=== PATIENT | male | born 1945 | race Caucasian/White ===

== ENCOUNTER 2017-10-16 21:48 | Emergency (ER) | payer MEDICARE, BC ==
--- NOTE | 2017-10-17 00:42 | EDM.PDOC ---
ED HPI GENERAL MEDICAL PROBLEM - General Chief Complaint: Gastrointestinal Problem Stated Complaint: ABDOMINAL PAIN/VOMITING Time Seen by Provider: 10/16/17 22:57 Source of Information: Reports: Patient Abdomen Pain Score (Numeric/FACES): 7 - Related Data Allergies Allergy/AdvReac Type Severity Reaction Status Date / Time fluorouracil [From Carac] Allergy Hives Verified 10/16/17 22:00 Home Meds: Home Meds Aspirin 81 mg PO DAILY 10/16/17 [History] Benazepril [Lotensin] 40 mg PO DAILY 10/16/17 [History] Bismuth Subsalicylate [Pepto-Bismol] 30 ml PO ONCALL PRN 10/16/17 [History] Carvedilol [Coreg] 12.5 mg PO BID 10/16/17 [History] Simethicone [Gas Relief 80] 80 mg PO ONCALL PRN 10/16/17 [History] Superbeta Prostate 600 mg PO DAILY 10/16/17 [History] Past Medical History Cardiovascular History: Reports: Hypertension Respiratory History: Reports: PE Gastrointestinal History: Reports: Hiatal Hernia Oncologic (Cancer) History: Reports: Basal Cell Carcinoma, Squamous Cell Carcinoma Dermatologic History: Reports: Other (See Below) Other Dermatologic History: basal and squamos cell - Past Surgical History HEENT Surgical History: Reports: Tonsillectomy Cardiovascular Surgical History: Reports: Cardiac Ablation GI Surgical History: Reports: Colonoscopy, Hernia Repair/Other Social & Family History - Tobacco Use Smoking Status *Q: Never Smoker - Alcohol Use Days Per Week of Alcohol Use: 3 Number of Drinks Per Day: 2 Total Drinks Per Week: 6 - Recreational Drug Use Recreational Drug Use: No ED ROS GENERAL - Review of Systems Review Of Systems: See Below ED EXAM, GI/ABD - Physical Exam Exam: See Below Course - Vital Signs Last Recorded V/S: Last Vital Signs Temp 36.6 C 10/16/17 21:57 Pulse 90 10/16/17 21:57 Resp 16 10/16/17 21:57 BP 151/87 H 10/16/17 21:57 Pulse Ox 95 10/16/17 21:57 - Orders/Labs/Meds Orders: Active Orders 24 hr Category Date Time Status EKG Documentation Completion [RC] ASDIRECTED Care 10/16/17 22:55 Active CXR [Chest 2V] [CR] Stat Exams 10/16/17 22:55 Taken UA W/MICROSCOPIC [URIN] Stat Lab 10/16/17 23:30 Ordered EKG 12 Lead [EK] Stat Ther 10/16/17 22:55 Ordered Labs: Laboratory Tests 10/16/17 10/16/17 10/16/17 Range/Units 23:05 23:05 23:30 WBC 8.41 (4.23-9.07) K/mm3 RBC 4.85 (4.63-6.08) M/mm3 Hgb 13.2 L (13.7-17.5) gm/L Hct 40.6 (40.1-51.0) % MCV 83.7 (79.0-92.2) fl MCH 27.2 (25.7-32.2) pg MCHC 32.5 (32.2-35.5) g/dl RDW Std Deviation 46.5 H (35.1-43.9) fL Plt Count 209 (163-337) K/mm3 MPV 10.4 (9.4-12.3) fl Neut % (Auto) 86.8 H (34.0-67.9) % Lymph % (Auto) 8.7 L (21.8-53.1) % [place] % (Auto) 3.3 L (5.3-12.2) % Eos % (Auto) 0.6 L (0.8-7.0) Baso % (Auto) 0.1 (0.1-1.2) % Neut # (Auto) 7.30 H (1.78-5.38) K/mm3 Lymph # (Auto) 0.73 L (1.32-3.57) K/mm3 [place] # (Auto) 0.28 L (0.30-0.82) K/mm3 Eos # (Auto) 0.05 (0.04-0.54) K/mm3 Baso # (Auto) 0.01 (0.01-0.08) K/mm3 Manual Slide Review Abnormal smear Sodium 138 (136-145) mEq/L Potassium 3.7 (3.5-5.1) mEq/L Chloride 104 (98-107) mEq/L Carbon Dioxide 26 (21-32) mEq/L Anion Gap 11.7 (5-15) BUN 23 H (7-18) mg/dL Creatinine 1.2 (0.7-1.3) mg/dL Est Cr Clr Drug Dosing 65.65 mL/min Estimated GFR (MDRD) 60 (>60) mL/min BUN/Creatinine Ratio 19.2 H (14-18) Glucose 174 H (83-115) mg/dL Calcium 8.9 (8.5-10.1) mg/dL Total Bilirubin 1.4 H (0.2-1.0) mg/dL AST 265 H (15-37) U/L ALT 203 H (16-63) U/L Alkaline Phosphatase 131 H (46-116) U/L Troponin I < 0.017 (0.00-0.056) ng/mL Total Protein 7.0 (6.4-8.2) g/dl Albumin 3.6 (3.4-5.0) g/dl Globulin 3.4 gm/dL Albumin/Globulin Ratio 1.1 (1-2) Amylase 42 (20-160) U/L Urine Color Yellow (Yellow) Urine Appearance Clear (Clear) Urine pH 7.0 (5.0-8.0) Ur Specific [place] 1.020 (1.005-1.030) Urine Protein Trace H (Negative) Urine Glucose (UA) Negative (Negative) Urine Ketones Trace H (Negative) Urine Occult Blood Negative (Negative) Urine Nitrite Negative (Negative) Urine Bilirubin Negative (Negative) Urine Urobilinogen 0.2 (0.2-1.0) Ur Leukocyte Esterase Negative (Negative) Urine RBC 0-5 (0-5) /hpf Urine WBC 0-5 (0-5) /hpf Ur Epithelial Cells Not seen (0-5) /hpf Amorphous Sediment Moderate H (NOT SEEN) /hpf Urine Bacteria Few (FEW) /hpf Urine Mucus Moderate H (FEW) /hpf Departure - Departure Time of Disposition: 00:40 Disposition: Home, Self-Care 01 Condition: Good Clinical Impression: Cholelithiasis without obstruction - Discharge Information *PRESCRIPTION DRUG MONITORING PROGRAM REVIEWED*: Not Applicable *COPY OF PRESCRIPTION DRUG MONITORING REPORT IN PATIENT DEN: Not Applicable Instructions: Cholelithiasis Referrals: Omar Sheppard Jr, MD [Primary Care Provider] - Additional Instructions: Followup with provider for ultrasound or further evaluation. Avoid fatty and greasy foods. - My Orders Last 24 Hours: My Active Orders 10/16/17 22:55 EKG Documentation Completion [RC] ASDIRECTED CXR [Chest 2V] [CR] Stat EKG 12 Lead [EK] Stat 10/16/17 23:30 UA W/MICROSCOPIC [URIN] Stat - Assessment/Plan Last 24 Hours: My Active Orders 10/16/17 22:55 EKG Documentation Completion [RC] ASDIRECTED CXR [Chest 2V] [CR] Stat EKG 12 Lead [EK] Stat 10/16/17 23:30 UA W/MICROSCOPIC [URIN] Stat
--- NOTE | 2017-10-17 05:03 | ER ---
REASON FOR EMERGENCY ROOM VISIT: Epigastric discomfort. HISTORY OF PRESENT ILLNESS: This 72-year-old gentleman comes in with a history of severe epigastric discomfort and bloating. He and his were on their way home from [place] today when he experienced lower chest and more importantly upper abdominal tightness with bloating and a sensation that he had an excess amount of gas. His symptoms worsened throughout the drive late this afternoon. He did stop and had a normal bowel movement, but this did not relieve any of his symptoms. Once he got home, he laid down and moved around a lot and was not able to obtain a comfortable position. He did have some nausea and vomiting after he took some simethicone and Pepto-Bismol. He vomited twice, but it did not affect his symptoms, and in some respect, he thought maybe they were worse. He urinated a normal-appearing urine which did not appear dark in color and shortly thereafter, his symptoms resolved. He feels well now. He did not have any fever or chills. He has no history of scleral icterus or darkening of his urine. He has no known history of biliary tract or peptic ulcer disease. PAST MEDICAL HISTORY: His past medical history was reviewed, but to summarize, he has had ablation for atrial fibrillation 10 years ago. Shortly after that, he had a pulmonary embolus which was treated with heparin, but he has had no thromboembolic problems since. He is hypertensive which is supposedly controlled. He had a normal screening colonoscopy 8 years ago and repair of an epigastric hernia. He does have a known history of hiatal hernia, which has not caused him any trouble. He had a ruptured appendectomy 20 years ago. CURRENT MEDICATIONS: Reviewed. See EMR. ALLERGIES: Fluorouracil. REVIEW OF SYSTEMS: Pertinent positives and negatives as listed above. PHYSICAL EXAMINATION: VITAL SIGNS: He is afebrile. See electronic medical records. HEENT: Head is normocephalic. He has a lot of actinic keratoses on his face and his arms. He has no scleral icterus. Oropharynx is normal in appearance. NECK: Supple. No JVD. No bruits. No adenopathy. CHEST: Clear to auscultation with good air exchange bilaterally and no wheezes, rhonchi, or rales. CARDIAC: Regular rate without murmur. There is no rub. ABDOMEN: Nondistended. Normal bowel sounds are present. He has old surgical scars in the epigastrium. He is soft and nontender. There is no tenderness to deep palpation in the right upper quadrant. Son sign is negative. No palpable masses are noted. EXTREMITIES: Normal pulses. No edema. LABORATORY DATA: Laboratory data was reviewed. His CBC was normal. He has a borderline anemia with a hemoglobin of 13.2. His CMP demonstrates that he has a mild elevation of total bilirubin at 1.4 with mild to modest elevation in AST of 265 and an ALT of 203. His alkaline phosphatase is 131. His troponin 1 is normal and an amylase was normal. His urinalysis was unremarkable. There is no urine bilirubin. IMPRESSION: Epigastric discomfort with bloating, nausea, and vomiting, resolved and elevated liver enzymes as described above. I think that the most likely etiology is biliary tract. He probably has symptomatic cholelithiasis. His chest x-ray shows an air-fluid level in the retrocardiac area, but although this may represent a paraesophageal hiatal hernia, I do not feel likely this is actually symptomatic. RECOMMENDATIONS: I told him to avoid fatty foods for now and that he should follow up with his provider who is at [place]. We could go ahead and set up an ultrasound, but he is going to want to have that done by his provider. I do not think it is an emergency at this point, especially without fever, leukocytosis, or tenderness on physical exam. He understands and agrees to this plan. All questions were answered. SATHYA /[id number]
--- NOTE | 2017-10-19 09:14 | CR ---
Chest: Two views of the chest were obtained. Comparison: No prior chest x-ray. Moderately large hiatal hernia seen. Heart size is normal. Upper mediastinum is normal. Parenchymal density is noted within the left midlung on the frontal view. Lungs otherwise are clear. Bony structures show scattered degenerative endplate spurring. Impression: 1. Slight parenchymal density within left midlung possibly due to small area of pneumonia. 2. Other incidental findings. Diagnostic code #3
== END 2017-10-17 00:53 | disposition home or self-care (01) ==
LOC: JD.ED 21:48
DX: K80.20 Calculus of gallbladder without cholecystitis without obstruction (principal); I10 Essential (primary) hypertension; Z79.82 Long term (current) use of aspirin; Z79.899 Other long term (current) drug therapy; Z90.49 Acquired absence of other specified parts of digestive tract; Z88.8 Allergy status to other drugs, medicaments and biological substances
CPT/HCPCS: 36415; 71046; 71046-26; 80053; 81001; 82150; 84484; 85025; 93005; 99283; 99284-25

== ENCOUNTER 2017-10-20 08:00 | Day surgery (SDC) | payer BC, MEDICARE ==
[2017-10-20] MEDS ORDERED: Bupivacaine 0.5%/EPINEPHrine 1:200,000 50 ML MDV ONE ×2 (08:21→09:14)
[2017-10-20] MEDS ORDERED: Lidocaine 1% with EPINEPHrine 1:100,000 20 ML MDV ONE ×2 (08:21→09:14)
[2017-10-20] MEDS ORDERED: Sodium Chloride 0.9% 10 ML Syringe FLUSH PRN (08:33)
[2017-10-20] MEDS ORDERED: Lidocaine 1%/Sod Bicarbonate in NS 8.4% 1 ML Syringe IDERM PRN (08:33)
[2017-10-20] MEDS ORDERED: fentaNYL 250 MCG/5 ML SDV ONE (08:41)
[2017-10-20] MEDS ORDERED: Propofol 200 MG/20 ML SDV ONE ×3 (08:41→10:45)
[2017-10-20] MEDS ORDERED: Lidocaine 1% 6 ML ONE (08:43)
[2017-10-20] MEDS ORDERED: Ondansetron 4 MG/2 ML SDV ONE (08:43)
[2017-10-20] MEDS ORDERED: Rocuronium 50 MG/5 ML Vial ONE (08:44)
[2017-10-20] MEDS ORDERED: ceFAZolin 1 GM Vial ONE ×3 (08:44→09:39)
[2017-10-20] MEDS ORDERED: Lactated Ringers 1,000 ML IV SCH (08:45)
[2017-10-20] MEDS ORDERED: HYDROmorphone 0.5 MG/0.5 ML Syringe ONE (08:45)
[2017-10-20] MEDS ORDERED: Midazolam 1 MG/ML 2 ML SDV ONE (09:16)
[2017-10-20] MEDS ORDERED: Dexamethasone 4 MG/ML SDV ONE (10:03)
[2017-10-20] MEDS ORDERED: hydrALAZINE 20 MG/ML SDV ONE (10:14)
--- NOTE | 2017-10-20 10:23 | PCM.PREANE ---
Preanesthetic Assessment - Procedure Proposed Procedure: Laparoscopic Cholecystectomy - Anesthesia/Transfusion/Family Hx Anesthesia History: Prior Anesthesia Without Reaction Family History of Anesthesia Reaction: No - Review of Systems General: No Symptoms Pulmonary: No Symptoms Cardiovascular: No Symptoms (Cardiac Ablation in 2007. No episodes of arrythmia since. ), Other (Hypertension, Elevated cholesterol.) Gastrointestinal: Other (GERD. Large Hiatal Hernia seen on CXR. ) Neurological: No Symptoms Other: Reports: None - Physical Assessment NPO Status Date: 10/19/17 NPO Status Time: 21:00 O2 Sat by Pulse Oximetry: 96 Respiratory Rate: 16 Vital Signs: Last Vital Signs Temp 37.1 C 10/20/17 08:10 Pulse 71 10/20/17 08:10 Resp 16 10/20/17 08:10 BP 155/110 H 10/20/17 08:10 Pulse Ox 96 10/20/17 08:10 Height: 1.88 m Weight: 127.006 kg ASA Class: 2 Mental Status: Alert & Oriented x3 Airway Class: Mallampati = 1 Dentition: Reports: Normal Dentition Thyro-Mental Finger Breadths: 3 Mouth Opening Finger Breadths: 3 ROM/Head Extension: Full Lungs: Clear to Auscultation, Normal Respiratory Effort Cardiovascular: Regular Rate, Regular Rhythm - Lab Values: Reviewed. - Imaging/EKG Impressions: SR at 80 bpm, Borderline QT prolongation, PVCs noted. - Allergies Allergies/Adverse Reactions: Allergies Allergy/AdvReac Type Severity Reaction Status Date / Time fluorouracil [From Carac] Allergy Hives Verified 10/19/17 14:19 - Anesthesia Plan Pre-Op Medication Ordered: Anxiolytic Beta Rishabh: Carvedilol Med Last Dose Date: 10/20/17 Med Last Dose Time: 07:30 - Acknowledgements Anesthesia Type Planned: General Anesthesia Pt an Appropriate Candidate for the Planned Anesthesia: Yes Alternatives and Risks of Anesthesia Discussed w Pt/Guardian: Yes Pt/Guardian Understands and Agrees with Anesthesia Plan: Yes Additional Comments: Dr. Villeda notified of patients hypertension in PreOp holding. Prasad and Dr. Villeda wanting to proceed with procedure. He did take his coreg this morning. Dr. Villeda also reviewed the chest xray that shows left mid lung pneumonia. Prasad is asymptomatic for pneumonia. Dr. Villeda does not feel this is pneumonia. Proceed with planned procedure. PreAnesthesia Questionnaire Cardiovascular History: Reports: Hypertension Respiratory History: Reports: PE Gastrointestinal History: Reports: Cholelithiasis, Hiatal Hernia Oncologic (Cancer) History: Reports: Basal Cell Carcinoma, Squamous Cell Carcinoma Dermatologic History: Reports: Other (See Below) Other Dermatologic History: basal and squamos cell - Past Surgical History HEENT Surgical History: Reports: Tonsillectomy Cardiovascular Surgical History: Reports: Cardiac Ablation GI Surgical History: Reports: Colonoscopy, Hernia Repair/Other - SUBSTANCE USE Smoking Status *Q: Never Smoker Days Per Week of Alcohol Use: 3 Number of Drinks Per Day: 2 Total Drinks Per Week: 6 Recreational Drug Use History: No - HOME MEDS Home Medications: Home Meds Aspirin 81 mg PO DAILY 10/16/17 [History] Benazepril [Lotensin] 40 mg PO DAILY 10/16/17 [History] Bismuth Subsalicylate [Pepto-Bismol] 30 ml PO ONCALL PRN 10/16/17 [History] Carvedilol [Coreg] 12.5 mg PO BID 10/16/17 [History] Simethicone [Gas Relief 80] 80 mg PO ONCALL PRN 10/16/17 [History] Saw/Vit E/Sod Siobhan/Lyc/Beta/Pyg [Prostate Health Caplet] 1 tab PO DAILY 10/19/17 [History] - CURRENT (IN HOUSE) MEDS Current Meds: Current Medications Lactated Ringer's (Ringers, Lactated) 1,000 mls @ 125 mls/hr IV ASDIRECTED SHERLYN Stop: 10/20/17 23:00 Last Admin: 10/20/17 08:30 Dose: 125 mls/hr Lidocaine/Sodium Bicarbonate (Buffered Lidocaine 1% In Ns 8.4%) 0.25 ml IDERM ONETIME PRN PRN Reason: Prior to IV Start Stop: 10/20/17 18:00 Last Admin: 10/20/17 08:30 Dose: 0.25 ml Sodium Chloride (Saline Flush) 10 ml FLUSH ASDIRECTED PRN PRN Reason: Keep Vein Open Stop: 10/20/17 18:00 Discontinued Medications Bupivacaine HCl/Epinephrine Bitart (Marcaine 0.5%/Epinephrine 1:200,000) Confirm Administered Dose 50 ml .ROUTE .STK-MED ONE Stop: 10/20/17 08:22 Bupivacaine HCl/Epinephrine Bitart (Marcaine 0.5%/Epinephrine 1:200,000) Confirm Administered Dose 50 ml .ROUTE .[facility]-MED ONE Stop: 10/20/17 09:15 Cefazolin Sodium (Ancef) Confirm Administered Dose 1 gm .ROUTE .ST-MED ONE Stop: 10/20/17 08:45 Cefazolin Sodium (Ancef) Confirm Administered Dose 1 gm .ROUTE .ST-MED ONE Stop: 10/20/17 08:45 Cefazolin Sodium (Ancef) Confirm Administered Dose 1 gm .ROUTE .ST-MED ONE Stop: 10/20/17 09:40 Dexamethasone (Dexamethasone) Confirm Administered Dose 8 mg .ROUTE .[facility]-MED ONE Stop: 10/20/17 10:04 Fentanyl (Sublimaze) Confirm Administered Dose 250 mcg .ROUTE .[facility] ONE Stop: 10/20/17 08:42 Hydromorphone HCl (Dilaudid) Confirm Administered Dose 0.5 mg .ROUTE .[facility] ONE Stop: 10/20/17 08:46 Lidocaine HCl (Xylocaine-Mpf 1%) Confirm Administered Dose 6 mls @ as directed .ROUTE .[facility]-MED ONE Stop: 10/20/17 08:44 Lidocaine/Epinephrine (Xylocaine 1% With Epinephrine 1:100,000) Confirm Administered Dose 20 ml .ROUTE .[facility]-MED ONE Stop: 10/20/17 08:22 Lidocaine/Epinephrine (Xylocaine 1% With Epinephrine 1:100,000) Confirm Administered Dose 20 ml .ROUTE .[facility]-MED ONE Stop: 10/20/17 09:15 Midazolam HCl (Versed 1 Mg/Ml) Confirm Administered Dose 2 mg .ROUTE .ST-MED ONE Stop: 10/20/17 09:17 Ondansetron HCl (Zofran) Confirm Administered Dose 4 mg .ROUTE .ST-MED ONE Stop: 10/20/17 08:44 Propofol (Diprivan 20 Ml) Confirm Administered Dose 200 mg .ROUTE .ST-MED ONE Stop: 10/20/17 08:42 Propofol (Diprivan 20 Ml) Confirm Administered Dose 400 mg .ROUTE .ST-MED ONE Stop: 10/20/17 09:16 Rocuronium [place] (Zemuron) Confirm Administered Dose 50 mg .ROUTE .ST-MED ONE Stop: 10/20/17 08:45
[2017-10-20] MEDS ORDERED: Haloperidol Lactate 5 MG/ML SDV IVPUSH PRN (10:29)
[2017-10-20] MEDS ORDERED: diphenhydrAMINE 50 MG/ML SDV IVPUSH PRN (10:29)
[2017-10-20] MEDS ORDERED: Meperidine 50 MG/ML Vial IVPUSH PRN (10:29)
[2017-10-20] MEDS ORDERED: fentaNYL 100 MCG/2 ML SDV IVPUSH PRN (10:29)
[2017-10-20] MEDS ORDERED: HYDROmorphone 0.5 MG/0.5 ML Syringe IVPUSH PRN (10:30)
--- NOTE | 2017-10-20 11:02 | PCM.OPNOTE ---
- General Post-Op/Procedure Note Date of Surgery/Procedure: 10/20/17 Operative Procedure(s): laparoscopic cholecystectomy Findings: thin-walled, distended gallbladder with gallstones; surrounding omental adhesions Pre Op Diagnosis: Symptomatic cholelithiasis Post-Op Diagnosis: Same Anesthesia Technique: General ET Tube Primary Surgeon: Melissa Pritchett Anesthesia Provider: Miriam Watson Pathology: Gallbladder with stones Fluid Replacement, Intraop: 1,600 Output, Urine Amount: 0 EBL in mLs: 10 Drain/Tube Comments:: None Complications: None apparent Condition: Good
--- NOTE | 2017-10-20 11:13 | PCM.POSTAN ---
POST ANESTHESIA ASSESSMENT - MENTAL STATUS Mental Status: Alert, Oriented - VITAL SIGNS Pulse Rate: 62 SaO2: 95 Resp Rate: 8 Blood Pressure: 143/87 Temperature: 37.3 C - RESPIRATORY Respiratory Status: Respiratory Rate WNL, Airway Patent, O2 Saturation Stable, Supplemental Oxygen - CARDIOVASCULAR CV Status: Pulse Rate WNL, Blood Pressure Stable - GASTROINTESTINAL GI Status: No Symptoms - PAIN Pain Score: 0 - POST OP HYDRATION Hydration Status: Adequate & Stable
--- NOTE | 2017-10-20 11:19 | PCM.PRNOTE ---
- Free Text/Narrative Note: OPERATIVE REPORT Date of Surgery/Procedure: 10/20/17 Operative Procedure(s): laparoscopic cholecystectomy Findings: thin-walled, distended gallbladder with gallstones; surrounding omental adhesions Pre Op Diagnosis: Symptomatic cholelithiasis Post-Op Diagnosis: Same Anesthesia Technique: General ET Tube Primary Surgeon: Melissa Pritchett MD Anesthesia Provider: Miriam Watson Pathology: Gallbladder with stones Fluid Replacement, Intraop: 1,600cc Output, Urine Amount: 0 EBL in mLs: 10 Drain/Tube Comments:: None Indication for the procedure: The patient is a 72-year-old gentleman who presented to my office with a recent emergency department visit for an episode of biliary colic. He was diagnosed with gallstones but no signs of infection. His labs repeated preoperatively and showed a normal bilirubin level. He was counseled for laparoscopic cholecystectomy, with possible conversion to open. After discussion of the risks of infection, bleeding and injury to the bile duct as well as increased complication from previous intra-abdominal surgery, the patient's consent was obtained. Description of the procedure: The patient presented to the outpatient holding area on the day of his procedure. His history and physical were verified and his consent was present and on the chart. He was taken back to the operating room and placed in supine position on the operating table. SCD boots were placed and functional prior to the start of the procedure. He had administration of preoperative antibiotics according to SCIP protocol, Ancef 3 g IV. A surgical timeout was performed. He then had induction of general anesthesia and was intubated without difficulty. The patient was prepped and draped in standard surgical fashion. We began by making an infraumbilical vertical incision and deepened this down through subcutaneous fat to the level of the fascia. This was grasped and incised. We bluntly entered through the peritoneum and a finger sweep was done. A stay suture of 0 Vicryl was placed in the fascia. The 12 mm balloon Gómez port was then inserted into the abdomen and the balloon inflated. Insufflation was attached and we had appropriate opening pressures. The abdomen was then insufflated to 15 mmHg. We inserted a scope into the abdomen and inspected the area where we had entered. There was no evidence of injury to surrounding structures with no evidence of bile or bleeding. A TAP block was then performed using 1% lidocaine with epinephrine mixed with 0.5% bupivicaine with epinephrine The patient was then positioned with head up and right side up to facilitate exposure of the gallbladder. We then proceeded with placing our additional ports. A 10mm port was placed in the epigastric region just to the right of the midline. Two additional 5mm ports placed under direct visualization in the right upper quadrant. We then proceeded to dissect free the omental adhesions that were covering the gallbladder. This was done using blunt dissection as well as Bovie device. Once we had sufficiently exposed the dome of the gallbladder. This was grasped and retracted cephalad. We did note that the gallbladder was extremely thin walled and distended. The process of grasping the gallbladder, there was some bile spilled in the abdomen. This was suctioned. We proceeded with our dissection to expose the cystic duct and cystic artery. We did have a critical view. The cystic duct and artery were then clipped and cut using endoscopic scissors. We then proceeded to fully dissect the gallbladder off of the cystic plate using the Bovie device. The gallbladder was in place in the Endo Catch bag and withdrawn towards the umbilical port. We then inspected the area of the dissection. This was irrigated and suctioned. We did note a large stone which was grasped and taken out of the abdomen. The bile was removed and irrigated until the fluid was clear. There was no significant bleeding and hemostasis was achieved. We then inspected the port sites and desufflated the abdomen. The ports were then removed. The gallbladder was withdrawn through the umbilical port site. We then proceeded to close the umbilical port site using an 0 Vicryl stitch. We had good closure of the fascia. The 2 larger incisions were closed with a deep dermal 3-0 Vicryl and then a superficial 4-0 Vicryl suture was used to approximate the skin 4-0 Vicryl sutures also used to approximate the skin on the 5 mm port sites. The skin was covered with Dermabond surgical glue. The patient tolerated the procedure well and was extubated without difficulty. He was transported to the PACU in stable condition. All sponge, needle counts correct. I was scrubbed and actively participated in the entire procedure. No immediate competitions note. Complications: None apparent Condition: Good Melissa Pritchett MD General Surgery
== END 2017-10-20 13:55 | disposition home or self-care (01) ==
LOC: JD.SDS 08:00
PROVIDERS: ATTEND Surgery
DX: K80.10 Calculus of gallbladder with chronic cholecystitis without obstruction (principal); N32.89 Other specified disorders of bladder; I10 Essential (primary) hypertension; E78.00 Pure hypercholesterolemia, unspecified; K21.9 Gastro-esophageal reflux disease without esophagitis; Z86.711 Personal history of pulmonary embolism; Z79.82 Long term (current) use of aspirin; Z79.899 Other long term (current) drug therapy; Z88.8 Allergy status to other drugs, medicaments and biological substances
CPT/HCPCS: 47562; J0360; J0690; J1100; J1170; J2250; J2405; J2704; J3010; J3490; J7120; 00790; J2001

== ENCOUNTER 2020-02-19 08:42 | Emergency (ER) | payer BC ==
--- NOTE | 2020-02-19 09:37 | EDM.PDOC ---
ED HPI GENERAL MEDICAL PROBLEM - General Chief Complaint: Genitourinary Problem Stated Complaint: urinary retention Time Seen by Provider: 02/19/20 09:00 Source of Information: Reports: Patient History Limitations: Reports: No Limitations - History of Present Illness INITIAL COMMENTS - FREE TEXT/NARRATIVE: 74-year-old male presents to the emergency department with complaints of urinary retention. Patient states he had sinus surgery yesterday and was released hospital about 6 PM last evening left ear he was able to successfully void and empty his bladder. However, he states that once he was nursing home his home from [place] he started to feel bladder fullness and every time he has tried to void since only is able to dribble. He also states that he has been taking his Oxy Contin every 4 hours since surgery. Denies any fever, chills, nausea or vomiting. Denies any burning when voiding or cystitis. - Related Data Allergies Allergy/AdvReac Type Severity Reaction Status Date / Time fluorouracil [From Carac] Allergy Hives Verified 02/19/20 08:58 Home Meds: Home Meds Aspirin 81 mg PO DAILY 10/16/17 [History] Benazepril [Lotensin] 40 mg PO DAILY 10/16/17 [History] carvediloL [Coreg] 12.5 mg PO BID 10/16/17 [History] Docusate Sodium [Colace] 100 mg PO BID 20 Days #40 cap 10/20/17 [Rx] Ibuprofen 600 mg PO Q4HR PRN 14 Days #60 tablet 10/20/17 [Rx] Acetaminophen [Tylenol] 325 mg PO ASDIRECTED PRN 02/19/20 [History] Ondansetron [Zofran ODT] 4 mg PO Q6H PRN 02/19/20 [History] Saline [place] 4 spray NASBOTH QID 02/19/20 [History] cephALEXin [Keflex] 500 mg PO QID 02/19/20 [History] methylPREDNISolone [Methylprednisolone] 4 mg PO ASDIRECTED 02/19/20 [History] oxyCODONE 5 mg PO Q4H PRN 02/19/20 [History] Past Medical History Cardiovascular History: Reports: Hypertension Respiratory History: Reports: PE Gastrointestinal History: Reports: Cholelithiasis, Hiatal Hernia Oncologic (Cancer) History: Reports: Basal Cell Carcinoma, Squamous Cell Carcinoma Dermatologic History: Reports: Other (See Below) Other Dermatologic History: basal and squamos cell - Infectious Disease History Infectious Disease History: Reports: Measles, Mumps - Past Surgical History HEENT Surgical History: Reports: Naso-Sinus Surgery, Tonsillectomy Cardiovascular Surgical History: Reports: Cardiac Ablation GI Surgical History: Reports: Colonoscopy, Hernia Repair/Other Social & Family History - Family History Family Medical History: No Pertinent Family History - Tobacco Use Tobacco Use Status *Q: Never Tobacco User Second Hand Smoke Exposure: No - Caffeine Use Caffeine Use: Reports: Coffee - Recreational Drug Use Recreational Drug Use: No ED ROS GENERAL - Review of Systems Review Of Systems: See Below Constitutional: Reports: No Symptoms. Denies: Fever, Chills HEENT: Reports: Other (Recent sinus surgery) Respiratory: Reports: No Symptoms Cardiovascular: Reports: No Symptoms Endocrine: Reports: No Symptoms GI/Abdominal: Reports: No Symptoms : Reports: Frequency, Urinary Retention. Denies: Dysuria, Flank Pain, Pain Musculoskeletal: Reports: No Symptoms Skin: Reports: No Symptoms Neurological: Reports: No Symptoms Psychiatric: Reports: No Symptoms Hematologic/Lymphatic: Reports: No Symptoms Immunologic: Reports: No Symptoms ED EXAM, RENAL/ - Physical Exam Exam: See Below Exam Limited By: No Limitations General Appearance: Alert, WD/WN, No Apparent Distress Eye Exam: Bilateral Eye: PERRL Ears: Hearing Grossly Normal Nose: Nasal Drainage (Patient had septoplasty yesterday, bloody drainage noted on drip pad that is still in place.) Throat/Mouth: Normal Voice, No Airway Compromise Head: Atraumatic, Normocephalic Neck: Normal Inspection, Supple, Non-Tender, Full Range of Motion Respiratory/Chest: No Respiratory Distress, Lungs Clear, Normal Breath Sounds, No Accessory Muscle Use, Chest Non-Tender Cardiovascular: Normal Peripheral Pulses, Regular Rate, Rhythm, No Edema, No Murmur GI/Abdominal: Normal Bowel Sounds, Soft, Non-Tender, No Distention (Male) Exam: Deferred Rectal (Males) Exam: Deferred Back Exam: Normal Inspection, Full Range of Motion Extremities: Normal Inspection, Normal Range of Motion, Non-Tender, No Pedal Edema, Normal Capillary Refill Neurological: Alert, Oriented Psychiatric: Normal Affect, Normal Mood Skin Exam: Warm, Dry, Intact, Normal Color, No Rash Lymphatic: No Adenopathy Course - Vital Signs Text/Narrative:: I have ordered for nursing staff to scan the patient's bladder after voiding. Nursing staff reports that the patient's got over 600 mL of urine in his bladder. I have ordered for a Amador catheter to be placed. I have also ordered a urinalysis with micro and culture if indicated. Last Recorded V/S: Last Vital Signs Temp 97.9 F 02/19/20 08:55 Pulse 80 02/19/20 08:55 Resp 18 02/19/20 08:55 BP 162/97 H 02/19/20 08:55 Pulse Ox 96 02/19/20 08:55 - Orders/Labs/Meds Orders: Active Orders 24 hr Category Date Time Status Insert Urinary Catheter [OM.PC] Q24H Care 02/19/20 09:45 Ordered Urinary Catheter Assessment [RC] ASDIRECTED Care 02/19/20 09:37 Active Labs: Laboratory Tests 02/19/20 Range/Units 09:40 Urine Color Yellow (Yellow) Urine Appearance Clear (Clear) Urine pH 6.0 (5.0-8.0) Ur Specific [place] 1.020 (1.005-1.030) Urine Protein Negative (Negative) Urine Glucose (UA) Negative (Negative) Urine Ketones Negative (Negative) Urine Occult Blood Negative (Negative) Urine Nitrite Negative (Negative) Urine Bilirubin Negative (Negative) Urine Urobilinogen 0.2 (0.2-1.0) Ur Leukocyte Esterase Negative (Negative) - Re-Assessments/Exams Free Text/Narrative Re-Assessment/Exam: 02/19/20 10:44 UA is unremarkable for infection. Patient will be discharged to home with a Amador catheter. He will can return to the ER in 2 days to have the catheter removed. Departure - Departure Time of Disposition: 10:45 Disposition: Home, Self-Care 01 Condition: Good Clinical Impression: Retention of urine - Discharge Information Instructions: Indwelling Urinary Catheter Care, Adult Referrals: Omar Sheppard Jr, MD [Primary Care Provider] - Forms: ED Department Discharge Additional Instructions: You were seen in the emergency department for complaints of urinary retention. Your urine did not show any signs of infection. We have placed a Amador catheter in your bladder which will be kept in for 2 days. Please return to the emergency department in 2 days to have the catheter removed. Sepsis Event Note (ED) - Evaluation Sepsis Screening Result: No Definite Risk - Focused Exam Vital Signs: Vital Signs Temp Pulse Resp BP Pulse Ox 02/19/20 08:55 97.9 F 80 18 162/97 H 96 - My Orders Last 24 Hours: My Active Orders 02/19/20 09:37 Urinary Catheter Assessment [RC] ASDIRECTED 02/19/20 09:45 Insert Urinary Catheter [OM.PC] Q24H - Assessment/Plan Last 24 Hours: My Active Orders 02/19/20 09:37 Urinary Catheter Assessment [RC] ASDIRECTED 02/19/20 09:45 Insert Urinary Catheter [OM.PC] Q24H
== END 2020-02-19 10:55 | disposition home or self-care (01) ==
LOC: JD.ED 08:42
DX: R33.9 Retention of urine, unspecified (principal); I10 Essential (primary) hypertension; Z79.82 Long term (current) use of aspirin; Z88.8 Allergy status to other drugs, medicaments and biological substances; Z79.899 Other long term (current) drug therapy
CPT/HCPCS: 51702; 81003; 99283-25

== ENCOUNTER 2020-02-21 08:10 | Emergency (ER) | payer BC ==
--- NOTE | 2020-02-21 08:36 | EDM.PDOC ---
ED HPI GENERAL MEDICAL PROBLEM - General Chief Complaint: Genitourinary Problem Stated Complaint: NEEDS CATHETER REMOVED Time Seen by Provider: 02/21/20 08:26 - History of Present Illness INITIAL COMMENTS - FREE TEXT/NARRATIVE: 74-year-old male presents to the emergency room to have his Amador catheter removed. Patient was seen here 2 days ago after having same-day surgery that day. He was able to void when he left the hospital in [place]. However in route here he was no longer able to void. He presents to the emergency room with urinary obstruction he had approximately a liter and a half urine in his bladder. He had a Amador placed and is done okay with that except he has some irritation secondary to the catheter. Patient denies any fevers chills or other problems and is doing better with his sinus and nasal reconstruction. - Related Data Allergies Allergy/AdvReac Type Severity Reaction Status Date / Time fluorouracil [From Carac] Allergy Hives Verified 02/19/20 08:58 Home Meds: Home Meds Aspirin 81 mg PO DAILY 10/16/17 [History] Benazepril [Lotensin] 40 mg PO DAILY 10/16/17 [History] carvediloL [Coreg] 12.5 mg PO BID 10/16/17 [History] Docusate Sodium [Colace] 100 mg PO BID 20 Days #40 cap 10/20/17 [Rx] Ibuprofen 600 mg PO Q4HR PRN 14 Days #60 tablet 10/20/17 [Rx] Acetaminophen [Tylenol] 325 mg PO ASDIRECTED PRN 02/19/20 [History] Ondansetron [Zofran ODT] 4 mg PO Q6H PRN 02/19/20 [History] Saline [place] 4 spray NASBOTH QID 02/19/20 [History] cephALEXin [Keflex] 500 mg PO QID 02/19/20 [History] methylPREDNISolone [Methylprednisolone] 4 mg PO ASDIRECTED 02/19/20 [History] oxyCODONE 5 mg PO Q4H PRN 02/19/20 [History] Tamsulosin HCl [Flomax] 0.4 mg PO DAILY #14 cap.er.24h 02/21/20 [Rx] Past Medical History Cardiovascular History: Reports: Hypertension Respiratory History: Reports: PE Gastrointestinal History: Reports: Cholelithiasis, Hiatal Hernia Oncologic (Cancer) History: Reports: Basal Cell Carcinoma, Squamous Cell Carcinoma Dermatologic History: Reports: Other (See Below) Other Dermatologic History: basal and squamos cell - Infectious Disease History Infectious Disease History: Reports: Measles, Mumps - Past Surgical History HEENT Surgical History: Reports: Naso-Sinus Surgery, Tonsillectomy Cardiovascular Surgical History: Reports: Cardiac Ablation GI Surgical History: Reports: Colonoscopy, Hernia Repair/Other Social & Family History - Family History Family Medical History: No Pertinent Family History - Caffeine Use Caffeine Use: Reports: Coffee ED ROS GENERAL - Review of Systems Review Of Systems: See Below Constitutional: Reports: No Symptoms Respiratory: Reports: No Symptoms Cardiovascular: Reports: No Symptoms GI/Abdominal: Reports: No Symptoms ED EXAM, GI/ABD - Physical Exam Exam: See Below Exam Limited By: No Limitations General Appearance: Alert, No Apparent Distress Respiratory/Chest: No Respiratory Distress, Lungs Clear Cardiovascular: Regular Rate, Rhythm, No Edema, No Murmur GI/Abdominal Exam: Normal Bowel Sounds, Soft, Non-Tender Course - Vital Signs Last Recorded V/S: Last Vital Signs Temp 36.8 C 02/21/20 08:24 Pulse 82 02/21/20 08:24 Resp 18 02/21/20 08:24 BP 172/100 H 02/21/20 08:24 Pulse Ox 98 02/21/20 08:24 - Orders/Labs/Meds Orders: Active Orders 24 hr Category Date Time Status Tamsulosin [Flomax] Med 02/21/20 08:38 Once 0.4 mg PO ONETIME ONE Medication Orders Tamsulosin HCl (Flomax) 0.4 mg PO ONETIME ONE Stop: 02/21/20 08:39 Meds: Medications Generic Name Dose Route Start Last Admin Trade Name Freq PRN Reason Stop Dose Admin Tamsulosin HCl 0.4 mg 02/21/20 08:38 Flomax PO 02/21/20 08:39 ONETIME ONE - Re-Assessments/Exams Free Text/Narrative Re-Assessment/Exam: 02/21/20 08:43 Patient is certain he will do fine with the catheter removed. I did caution him on this however he wants the catheter removed. And that is certainly the plan. We will start Flomax 0.4 mg today and then given 2 weeks worth. Patient agrees to follow-up with his regular physician for recheck. Departure - Departure Time of Disposition: 08:44 Disposition: Home, Self-Care 01 Clinical Impression: Retention of urine - Discharge Information Referrals: Omar Sheppard Jr, MD [Primary Care Provider] - Forms: ED Department Discharge Additional Instructions: Return to the emergency room with any questions problems or worsening symptoms. Follow-up with your regular physician within 2 weeks. We have started you on Flomax, this is for urinary obstruction. Your first dose was given here in the emergency room get to the pharmacy tomorrow to get the prescription filled. Discuss if you should continue this medication with your regular healthcare provider before you run out. Sepsis Event Note (ED) - Focused Exam Vital Signs: Vital Signs Temp Pulse Resp BP Pulse Ox 02/21/20 08:24 36.8 C 82 18 172/100 H 98 - My Orders Last 24 Hours: My Active Orders 02/21/20 08:38 Tamsulosin [Flomax] 0.4 mg PO ONETIME ONE - Assessment/Plan Last 24 Hours: My Active Orders 02/21/20 08:38 Tamsulosin [Flomax] 0.4 mg PO ONETIME ONE
[2020-02-21] MEDS ORDERED: Tamsulosin 0.4 MG Cap.ER PO ONE (08:38)
== END 2020-02-21 08:55 | disposition home or self-care (01) ==
LOC: JD.ED 08:10
DX: R33.9 Retention of urine, unspecified (principal); I10 Essential (primary) hypertension; Z88.8 Allergy status to other drugs, medicaments and biological substances; Z79.82 Long term (current) use of aspirin; Z79.899 Other long term (current) drug therapy
CPT/HCPCS: 99283; A9270

== ENCOUNTER 2022-02-28 06:22 | Day surgery (SDC) | payer BC ==
[~2022-02-28 06:22] MED LIST: Lactated Ringers 1,000 ML IV SCH; Lidocaine 1%/Sod Bicarbonate in NS 8.4% 1 ML Syringe IDERM PRN; Sodium Chloride 0.9% 10 ML Syringe FLUSH PRN; Sodium Chloride 0.9% 10 ML Syringe FLUSH SCH
[2022-02-28] MEDS ORDERED: fentaNYL 100 MCG/2 ML SDV ONE (06:57)
[2022-02-28] MEDS ORDERED: Propofol 200 MG/20 ML SDV ONE ×2 (06:58→08:04)
[2022-02-28] MEDS ORDERED: Midazolam 1 MG/ML 2 ML SDV ONE (06:58)
[2022-02-28] MEDS ORDERED: Lidocaine 1% 2 ML ONE (07:00)
== END 2022-02-28 09:28 | disposition home or self-care (01) ==
LOC: JD.SDS 06:22
PROVIDERS: ATTEND Family Medicine
DX: Z12.11 Encounter for screening for malignant neoplasm of colon (principal); D12.2 Benign neoplasm of ascending colon; D12.3 Benign neoplasm of transverse colon; K57.30 Diverticulosis of large intestine without perforation or abscess without bleeding; K29.50 Unspecified chronic gastritis without bleeding; K31.89 Other diseases of stomach and duodenum; K22.70 Barrett's esophagus without dysplasia; K44.9 Diaphragmatic hernia without obstruction or gangrene; I10 Essential (primary) hypertension; I26.99 Other pulmonary embolism without acute cor pulmonale; I48.91 Unspecified atrial fibrillation; E78.00 Pure hypercholesterolemia, unspecified; Z86.010 Personal history of colon polyps; Z79.899 Other long term (current) drug therapy; Z88.6 Allergy status to analgesic agent; Z98.890 Other specified postprocedural states; Z90.49 Acquired absence of other specified parts of digestive tract; Z88.8 Allergy status to other drugs, medicaments and biological substances
CPT/HCPCS: 00813; J2250; J2704; J3010; J7120

== ENCOUNTER 2023-09-11 12:57 | Day surgery (SDC) | payer MEDICARE, BC ==
[~2023-09-11 12:57] MED LIST changes: -Lactated Ringers 1,000 ML IV SCH; -Lidocaine 1%/Sod Bicarbonate in NS 8.4% 1 ML Syringe IDERM PRN
[2023-09-11] MEDS: Lactated Ringers 1,000 ML IV SCH (13:20)
[2023-09-11] MEDS ORDERED: Ondansetron 4 MG/2 ML SDV IVPUSH PRN (13:36)
[2023-09-11 14:14] LABS: BASOPHILS PERCENT AUTO 0.6 % (0.0-1.0); EOSINOPHILS ABSOLUTE AUTO 0.2 K/mm3 (0.0-0.4); EOSINOPHILS PERCENT AUTO 4.2 % (0.0-6.0); HEMATOCRIT 37.9 % (42.0-52.0); HEMOGLOBIN 11.4 gm/dl (14.0-18.0); IMMATURE GRAN ABSOLUTE AUTO 0.02 K/mm3 (0.00-0.05); IMMATURE GRAN PERCENT AUTO 0.4 % (0.0-0.4); LYMPHOCYTES ABSOLUTE AUTO 1.3 K/mm3 (1.0-4.8); LYMPHOCYTES PERCENT AUTO 25.3 % (24.0-44.0); MEAN CORPUSCULAR HEMOGLOBIN 26.3 pg (28.0-32.0); MEAN CORPUSCULAR HGB CONC 30.1 g/dl (32.0-36.0); MEAN CORPUSCULAR VOLUME 87.5 fl (83.0-99.0); MEAN PLATELET VOLUME 10.7 fl (9.4-12.4); MONOCYTES ABSOLUTE AUTO 0.5 K/mm3 (0.0-0.8); MONOCYTES PERCENT AUTO 8.9 % (0.0-8.0); NEUTROPHILS ABSOLUTE AUTO 3.1 K/mm3 (1.8-7.7); NEUTROPHILS PERCENT AUTO 60.6 % (41.0-71.0); PLATELET COUNT,PLT 207 K/mm3 (150-400); RED BLOOD CELL COUNT 4.33 M/mm3 (4.52-5.90); WHITE BLOOD CELL COUNT,WBC 5.18 K/mm3 (3.9-11.3)
[2023-09-11] MEDS ORDERED: Propofol 200 MG/20 ML SDV ONE ×3 (14:23→15:21)
[2023-09-11] MEDS ORDERED: fentaNYL 100 MCG/2 ML SDV ONE (14:23)
[2023-09-11] MEDS ORDERED: Midazolam 1 MG/ML 2 ML SDV ONE (14:23)
[2023-09-11] MEDS ORDERED: Lidocaine 1% 2 ML ONE (14:23)
[2023-09-11] MEDS ORDERED: Lactated Ringers 1,000 ML ONE (15:29)
== END 2023-09-11 16:35 | disposition home or self-care (01) ==
LOC: JD.SDS 12:57
PROVIDERS: ATTEND Surgery
DX: K22.70 Barrett's esophagus without dysplasia (principal); K44.9 Diaphragmatic hernia without obstruction or gangrene; D50.9 Iron deficiency anemia, unspecified; K31.7 Polyp of stomach and duodenum; K31.89 Other diseases of stomach and duodenum; K20.90 Esophagitis, unspecified without bleeding; K29.50 Unspecified chronic gastritis without bleeding; I13.0 Hypertensive heart and chronic kidney disease with heart failure and stage 1 through stage 4 chronic kidney disease, or unspecified chronic kidney disease; I50.32 Chronic diastolic (congestive) heart failure; N18.30 Chronic kidney disease, stage 3 unspecified; E78.00 Pure hypercholesterolemia, unspecified; Z79.84 Long term (current) use of oral hypoglycemic drugs; Z79.899 Other long term (current) drug therapy; Z88.8 Allergy status to other drugs, medicaments and biological substances
CPT/HCPCS: 36415; 43239; 43250; 85025; 88305; J2250; J2704; J3010; J7120; 00731; 99100; J3490